=== PATIENT | female | born 1995 | race Caucasian/White ===

== ENCOUNTER 2023-08-04 17:03 | Emergency (ER) | payer OTHER ==
[~2023-08-04] VITALS: Ht 165.1 cm; Wt 77.3 kg
[2023-08-04 17:06] VITALS: BP 144/85; PULSE 102; RESP 16; TEMP 98.2
== END 2023-08-04 20:10 | disposition left against medical advice (07) ==
LOC: EMS 17:06
DX: F41.9 Anxiety disorder, unspecified (principal); R06.02 Shortness of breath; R11.10 Vomiting, unspecified; Z53.21 Procedure and treatment not carried out due to patient leaving prior to being seen by health care provider
CPT/HCPCS: 99281; Z7502